=== PATIENT | male | born 1960 | race Caucasian/White ===

== ENCOUNTER 2017-09-02 08:32 | Emergency (ER) | payer BC, OTHER ==
[2017-09-02 08:50] VITALS: BP 127/76
--- NOTE | 2017-09-02 09:07 | EDM.PDOC ---
ED HPI GENERAL MEDICAL PROBLEM - General Chief Complaint: Chest Pain Stated Complaint: CHEST,BACK PAIN, TIGHTNESS Time Seen by Provider: 09/02/17 09:07 Source of Information: Reports: Patient, RN, RN Notes Reviewed History Limitations: Reports: No Limitations - History of Present Illness Onset: Gradual Location: Reports: Chest, Back Quality: Reports: Sharp Severity: Moderate Improves with: Reports: None Worsens with: Reports: None Associated Symptoms: Reports: Chest Pain Treatments COURT USHER: Reports: NSAIDS Mid-Sternal Chest Pain Score (Numeric/FACES): 4 - Related Data Allergies Allergy/AdvReac Type Severity Reaction Status Date / Time No Known Allergies Allergy Verified 09/02/17 08:46 Home Meds: Home Meds . [No Known Home Meds] 09/02/17 [History] Past Medical History - Past Health History Medical/Surgical History: Denies Medical/Surgical History Social & Family History - Tobacco Use Second Hand Smoke Exposure: No - Caffeine Use Caffeine Use: Reports: Soda - Recreational Drug Use Recreational Drug Use: No ED ROS GENERAL - Review of Systems Review Of Systems: ROS reveals no pertinent complaints other than HPI. ED EXAM, GENERAL - Physical Exam Exam: See Below Exam Limited By: No Limitations General Appearance: Alert, WD/WN, No Apparent Distress Eye Exam: Bilateral Eye: Normal Inspection Ears: Normal External Exam, Hearing Grossly Normal Nose: Normal Inspection Throat/Mouth: Normal Inspection, Normal Lips, Normal Teeth, No Airway Compromise Head: Atraumatic, Normocephalic Neck: Normal Inspection, Supple, Non-Tender, Full Range of Motion Respiratory/Chest: No Respiratory Distress, Lungs Clear, Normal Breath Sounds, No Accessory Muscle Use, Chest Non-Tender Cardiovascular: Normal Peripheral Pulses, Regular Rate, Rhythm, No Edema, No Gallop, No JVD, No Murmur, No Rub Peripheral Pulses: 2+: Radial (L), Radial (R) GI/Abdominal: Normal Bowel Sounds, Soft, Non-Tender (Male) Exam: Deferred Rectal (Males) Exam: Deferred Back Exam: Normal Inspection, Decreased Range of Motion, Paraspinal Tenderness ( thoracic) Extremities: Normal Inspection, Normal Range of Motion, Non-Tender, Normal Capillary Refill Neurological: Alert, Oriented, Normal Cognition, Normal Gait, No Motor/Sensory Deficits Psychiatric: Normal Affect, Normal Mood Skin Exam: Warm, Dry, Intact, Normal Color, No Rash Lymphatic: No Adenopathy EKG INTERPRETATION EKG Date: 09/02/17 Time: 09:21 Rhythm: NSR [place]: Normal P-Wave: Present QRS: Normal ST-T: Normal QT: Normal Course - Vital Signs Last Recorded V/S: Last Vital Signs Temp 98.5 F 09/02/17 08:47 Pulse 88 09/02/17 08:47 Resp 20 09/02/17 08:47 BP 127/76 09/02/17 08:47 Pulse Ox 96 09/02/17 08:47 - Orders/Labs/Meds Orders: Active Orders 24 hr Category Date Time Status EKG Documentation Completion [RC] STAT Care 09/02/17 09:12 Active Peripheral IV Care [RC] . DIRECTED Care 09/02/17 09:13 Active Chest w Cont [CT] Urgent Exams 09/02/17 10:18 Taken Sodium Chloride 0.9% [Saline Flush] Med 09/02/17 09:12 Active 10 ml FLUSH ASDIRECTED PRN cefTRIAXone [Rocephin] 1 gm Med 09/02/17 11:29 Ordered Sodium Chloride 0.9% [Normal Saline] 50 ml IV ONETIME Peripheral IV Insertion Adult [OM.PC] Stat Oth 09/02/17 09:12 Ordered Medication Orders Sodium Chloride (Saline Flush) 10 ml FLUSH ASDIRECTED PRN PRN Reason: Keep Vein Open Last Admin: 09/02/17 09:38 Dose: 10 ml Labs: Laboratory Tests 09/02/17 09/02/17 Range/Units 09:31 09:31 WBC 13.0 H (5.0-10.0) 10^3/uL RBC 5.01 (4.6-6.2) 10^6/uL Hgb 14.9 (14.0-18.0) g/dL Hct 44.9 (40.0-54.0) % MCV 89.6 (80-100) fL MCH 29.7 (27.0-34.0) pg MCHC 33.2 (33.0-35.0) g/dL Plt Count 252 (150-450) 10^3/uL Neut % (Auto) 73.6 (42.2-75.2) % Lymph % (Auto) 15.0 L (20.5-50.1) % [place] % (Auto) 10.9 H (2-8) % Eos % (Auto) 0.3 L (1.0-3.0) % Baso % (Auto) 0.2 (0.0-1.0) % Sodium 140 (135-145) mmol/L Potassium 4.4 (3.6-5.0) mmol/L Chloride 104 (101-111) mmol/L Carbon Dioxide 27.0 (21.0-31.0) mmol/L Anion Gap 13.4 BUN 18 (7-18) mg/dL Creatinine 1.0 (0.6-1.3) mg/dL Est Cr Clr Drug Dosing 80.52 mL/min Estimated GFR (MDRD) > 60 BUN/Creatinine Ratio 18.00 Glucose 114 H (74-105) mg/dL Calcium 9.2 (8.4-10.2) mg/dl Total Bilirubin 1.3 H (0.2-1.0) mg/dL AST 18 (10-42) IU/L ALT 21 (10-60) IU/L Alkaline Phosphatase 60 (42-121) IU/L Troponin I < 0.02 (0.00-0.02) ng/ml Total Protein 7.9 (6.7-8.2) g/dl Albumin 4.4 (3.2-5.5) g/dl Globulin 3.5 Albumin/Globulin Ratio 1.26 Meds: Medications Generic Name Dose Route Start Last Admin Trade Name Freq PRN Reason Stop Dose Admin Sodium Chloride 10 ml 09/02/17 09:12 09/02/17 09:38 Saline Flush FLUSH 10 ml ASDIRECTED PRN Administration Keep Vein Open Discontinued Medications Generic Name Dose Route Start Last Admin Trade Name Freq PRN Reason Stop Dose Admin Iopamidol 100 ml 09/02/17 10:21 09/02/17 11:03 Isovue-370 (76%) IVPUSH 09/02/17 10:22 77 ml ONETIME ONE Administration - Radiology Interpretation Free Text/Narrative:: 2 view chest xray: Bibasilar atelectasis. Clinical correlation please. See Rad report Departure - Departure Time of Disposition: 12:15 Disposition: Home, Self-Care 01 Condition: Good Clinical Impression: Pneumonia Qualifiers: Pneumonia type: due to unspecified organism Laterality: right Lung location: lower lobe of lung Qualified Code(s): J18.1 - Lobar pneumonia, unspecified organism Instructions: Community-Acquired Pneumonia, Adult, [id number] Forms: ED Department Discharge Additional Instructions: Zithromax 500mg orally for 7 days. Be sure to complete this course of antibiotics. Make an appointment at your primary care facility for Saturday09/09/17. Drink plenty of fluids. Deep breathe and cough frequently. - My Orders Last 24 Hours: My Active Orders 09/02/17 09:12 EKG Documentation Completion [RC] STAT Sodium Chloride 0.9% [Saline Flush] 10 ml FLUSH ASDIRECTED PRN Peripheral IV Insertion Adult [OM.PC] Stat 09/02/17 09:13 Peripheral IV Care [RC] . DIRECTED 09/02/17 10:18 Chest w Cont [CT] Urgent 09/02/17 11:29 cefTRIAXone [Rocephin] 1 gm Sodium Chloride 0.9% [Normal Saline] 50 ml IV ONETIME - Assessment/Plan Last 24 Hours: My Active Orders 09/02/17 09:12 EKG Documentation Completion [RC] STAT Sodium Chloride 0.9% [Saline Flush] 10 ml FLUSH ASDIRECTED PRN Peripheral IV Insertion Adult [OM.PC] Stat 09/02/17 09:13 Peripheral IV Care [RC] . DIRECTED 09/02/17 10:18 Chest w Cont [CT] Urgent 09/02/17 11:29 cefTRIAXone [Rocephin] 1 gm Sodium Chloride 0.9% [Normal Saline] 50 ml IV ONETIME
[2017-09-02] MEDS ORDERED: Sodium Chloride 0.9% 10 ML Syringe FLUSH PRN (09:12)
[2017-09-02 09:59] LABS: CHLORIDE,CL 104 mmol/L (101-111); SODIUM,NA 140 mmol/L (135-145)
--- NOTE | 2017-09-02 10:00 | CR ---
Clinical history: 57-year-old male chest pain. Interpretation: Less than optimal inspiratory effort and patchy platelike atelectasis both lung bases . Normal cardiac silhouette without cephalization of flow, signs of alveolar edema or dependent pleural effusion. No lobar pneumonia. Dereck thorax unremarkable. No pneumothorax. CONCLUSION: Bibasilar atelectasis. (Developing consolidation? Infarcts?) Clinical correlation please.
[2017-09-02] MEDS ORDERED: Iopamidol 755 Mg/ML 100 ML Bottle IVPUSH ONE (10:21)
[2017-09-02] MEDS ORDERED: cefTRIAXone 1 GM in Sodium Chloride 0.9% 50 ML IV ONE (11:29)
--- NOTE | 2017-09-02 11:37 | CT ---
CLINICAL HISTORY: 57-year-old 220 pound male with chest pain with abnormal plain film radiograph, i.e ., "bibasilar atelectasis and possible developing consolidation or infarcts". WBC 13,000 and cough. SCAN TECHNIQUE: Volume acquisition of data from the chest (bony thorax, lungs and mediastinum) obtain ed during the intravenous infusion 77 cc nonionic 370 contrast (PE protocol) while the patient was ly ing supine on the Siemens multislice scanner [place], [place]. [employer] a archived in the PACS system for storage, reformatting axial/sagittal/coronal planes and study (lung /mediastinal windows). INTERPRETATION: Abnormal. 1. No sign of intraluminal filling defect (thrombus) pulmonary artery circulation, i.e., low probabil ity pulmonary embolism/infarct. 2. *Bibasilar atelectasis and asymmetric dense new pneumonic like consolidation involving the posteri or segment right lower lobe (elevation of the ipsilateral right hemidiaphragm with hepatic flexure of the colon interposed between diaphragm and liver). Normal gallbladder and liver/spleen unremarkable. 3. Shotty mediastinal lymphadenopathy (less than 1 cm diameter) probably inflammatory in nature. No p eripheral pleural-based wedge shaped infarcts, focal lobar oligemia, or dependent pleural effusion. 4. Normal cardiac silhouette. No pericardial effusion, cephalization of flow, signs of alveolar edema or dependent effusion. 5. No parenchymal lung nodule or mass lesion. 6. Multilevel disc disease and chronic arthritic changes spine. No pathologic skeletal lesion, thorac ic fracture or dislocation. 7. Normal caliber thoracic aorta. CONCLUSION: Right lower lobe pneumonia.
--- NOTE | 2017-09-05 09:28 | EKG ---
09/02/2017- GRANT BREEN - A 12-lead EKG shows normal sinus rhythm with a heart rate of 75. No significant ST elevation or ST depression noted on this 12-lead EKG. Nonspecific ST-T wave changes noted on lead V2 and V3. [facility] /[id number]
== END 2017-09-02 12:28 | disposition home or self-care (01) ==
LOC: DL.ED 08:32
DX: J18.9 Pneumonia, unspecified organism (principal)
CPT/HCPCS: 36415; 71020; 71260; 80053; 84484; 85025; 93005; 96365; 99285; J0696; J7050; Q9967

== ENCOUNTER 2022-04-04 13:27 | Emergency (ER) | payer OTHER ==
[2022-04-04] MEDS ORDERED: Sodium Chloride 0.9% 10 ML Syringe FLUSH PRN (13:45)
[2022-04-04 13:49] VITALS: BP 144/95; PULSE 60
[2022-04-04 14:24] LABS: ANION GAP 12.6 mEq/L (7-13); CHLORIDE,CL 104 mmol/L (98-107); SODIUM,NA 139 mmol/L (136-145)
== END 2022-04-04 15:14 | disposition home or self-care (01) ==
LOC: DL.ED 13:27
DX: N20.0 Calculus of kidney (principal); Z79.899 Other long term (current) drug therapy
CPT/HCPCS: 36415; 74176; 80053; 81001; 82150; 83690; 85025; 99284; 99284-25

== ENCOUNTER 2022-06-12 05:55 | Day surgery (SDC) | payer OTHER ==
[2022-06-12] MEDS ORDERED: Midazolam 1 MG/ML 2 ML SDV IV ONE ×6 (05:56→07:11)
[2022-06-12] MEDS ORDERED: fentaNYL 100 MCG/2 ML SDV IV ONE ×3 (05:56→06:58)
[2022-06-12] MEDS ORDERED: Dextrose 5%-0.45% NaCl 1,000 ML IV SCH (06:00)
[2022-06-12] MEDS ORDERED: Sodium Chloride 0.9% 10 ML Syringe FLUSH PRN (06:00)
[2022-06-12] MEDS ORDERED: Midazolam 1 MG/ML 2 ML SDV ONE (06:19)
[2022-06-12] MEDS ORDERED: fentaNYL 100 MCG/2 ML SDV ONE (06:19)
[2022-06-12] MEDS ORDERED: Sodium Chloride 0.9% 10 ML Syringe FLUSH SCH (09:00)
[2022-06-12 09:15] VITALS: BP 121/73; PULSE 56
== END 2022-06-12 09:15 | disposition home or self-care (01) ==
LOC: DL.ENDO 05:55
PROVIDERS: ATTEND Internal Medicine Gastroenterology
DX: K62.5 Hemorrhage of anus and rectum (principal); K59.4 Anal spasm; E78.5 Hyperlipidemia, unspecified; E66.09 Other obesity due to excess calories; G47.33 Obstructive sleep apnea (adult) (pediatric); R51.9 Headache, unspecified; F17.220 Nicotine dependence, chewing tobacco, uncomplicated; Z68.35 Body mass index [BMI] 35.0-35.9, adult; Z86.73 Personal history of transient ischemic attack (TIA), and cerebral infarction without residual deficits; Z96.649 Presence of unspecified artificial hip joint; Z79.82 Long term (current) use of aspirin
CPT/HCPCS: 45378; J2250; J3010; J7042